=== PATIENT | female | born 1985 | race Two or more races ===

== ENCOUNTER 2016-12-29 08:44 | Emergency (ER) | payer OTHER ==
[2016-12-29 08:51] VITALS: BP 147/84; PULSE 70; TEMP 98.6; BMI 33.3
--- NOTE | 2016-12-29 09:46 | PDOC ---
History of Present Illness - General Chief Complaint: Cold Symptoms Stated Complaint: COUGH, COLD Time Seen by Provider: 12/29/16 09:12 History Source: Patient Exam Limitations: No Limitations - History of Present Illness Initial Comments: 12/29/16 09:43 daughter helping with translation; CC sore throat x 3 days with fever; no cough Timing/Duration: reports: changing over time Severity: reports: mild Possible Cause: No: chronic episodes Modifying Factors: worse with: activity Associated Symptoms: reports: fever/chills, sore throat. denies: denies symptoms, nasal congestion, nasal drainage, wheezing Past History - Past Medical History Allergies/Adverse Reactions: Allergies Allergy/AdvReac Type Severity Reaction Status Date / Time No Known Allergies Allergy Verified 12/29/16 08:51 Home Medications: Ambulatory Orders NK [No Known Home Medication] 12/29/16 HTN: Yes Other medical history: VERTIGO - Psycho/Social/Smoking Cessation Hx Anxiety: No Suicidal Ideation: No Smoking History: Never smoked Hx Alcohol Use: No Drug/Substance Use Hx: No Substance Use Type: None Review of Systems - Review of Systems Constitutional: Yes: Fever, Malaise. No: Chills HEENTM: Yes: Throat Pain, Throat Swelling Respiratory: No: Symptoms reported, Cough Cardiac (ROS): No: Symptoms Reported ABD/GI: No: Symptoms Reported *Physical Exam - Vital Signs Last Vital Signs Temp Pulse Resp BP Pulse Ox 98.6 F 70 20 147/84 98 12/29/16 08:48 12/29/16 08:48 12/29/16 08:48 12/29/16 08:48 12/29/16 08:48 - Physical Exam General Appearance: Yes: Appropriately Dressed. No: Apparent Distress HEENT: positive: Pharyngeal Erythema, Tonsillar Exudate, Tonsillar Erythema. negative: TMs Normal, TM Bulging, TM Dull, TM Erythema Neck: positive: Lymphadenopathy (R), Lymphadenopathy (L). negative: Tender Respiratory/Chest: positive: Lungs Clear. negative: Chest Tender, Respiratory Distress, Accessory Muscle Use Cardiovascular: positive: Regular Rhythm, Regular Rate. negative: Murmur Medical Decision Making - Medical Decision Making 12/29/16 09:45 will treat with pen Vk x 10 days *DC/Admit/Observation/Transfer Diagnosis at time of Disposition: Acute bacterial pharyngitis - Discharge Dispostion Disposition: HOME Condition at time of disposition: Stable Admit: No - Patient Instructions Additional Instructions: gargle; motrin for pain ; see local MD friday if no better
== END 2016-12-29 09:53 | disposition home or self-care (01) ==
LOC: JERFT 08:44
DX: J02.9 Acute pharyngitis, unspecified (principal); B96.89 Other specified bacterial agents as the cause of diseases classified elsewhere; I10 Essential (primary) hypertension; R42 Dizziness and giddiness
CPT/HCPCS: 99281-25

== ENCOUNTER 2019-06-08 23:16 | Emergency (ER) | payer OTHER ==
[2019-06-08 23:38] VITALS: BP 167/104; PULSE 94; TEMP 99; BMI 34.7
--- NOTE | 2019-06-09 01:20 | PDOC ---
History of Present Illness - General Chief Complaint: Vaginal Sxs Stated Complaint: ABD PAIN Time Seen by Provider: 06/09/19 01:19 History Source: Patient Exam Limitations: Language Barrier (Pink Rebel Shoes used for this interaction) - History of Present Illness Initial Comments: 06/09/19 01:44 34 year old c/o vaginal itching and burning with odor for 2 days, denies urinary symptoms, NVD, abdominal pain. patient is noted to have high blood pressure reading reports taking her evening dose of medication. denies headache , dizziness, weakness or chest pain/ patient reports that she was wearing pantyliner unsure if symptoms are related to irritation. reports yellow vaginal discharge. LMP: 05/10/2019 Has IUD denies recent antibiotics, denies STI exposure PMHX: hypertension currently on amlodipine, atenolol, benazepril. 06/09/19 01:54 Past History - Past Medical History Allergies/Adverse Reactions: Allergies Allergy/AdvReac Type Severity Reaction Status Date / Time No Known Allergies Allergy Verified 12/29/16 08:51 Home Medications: Ambulatory Orders Penicillin V Potassium [Pen Vee K -] 500 mg PO TID #30 tablet 12/29/16 Miconazole Nitrate [Miconazole 7] 45 gm VG DAILY #7 cream.appl 06/09/19 HTN: Yes - Suicide/Smoking/Psychosocial Hx Smoking History: Unknown if ever smoked Information on smoking cessation initiated: No Hx Alcohol Use: No Drug/Substance Use Hx: No Substance Use Type: None Review of Systems - Review of Systems Able to Perform ROS?: Yes Is the patient limited Niuean proficient: No Constitutional: No: Symptoms Reported, See HPI, Chills, Diaphoresis, Fever, Loss of Appetite, Malaise, Night Sweats, Weakness, Weight Stable, Unintentional Wgt. Loss, Unexplained wgt Loss, Other ABD/GI: Yes: Other (vaginal itching/ burning). No: Symptoms Reported, See HPI, Abdominal Distended, Abd. Pain w/ defecation, Blood Streaked Bowels, Constipated , Diarrhea, Difficulty Swallowing, Nausea, Poor Appetite, Poor Fluid Intake, Rectal Bleeding, Vomiting, Indigestion, Abdominal cramping, Tarry Stools *Physical Exam - Vital Signs Last Vital Signs Temp Pulse Resp BP Pulse Ox 99 F 94 H 20 167/104 H 98 06/08/19 23:33 06/08/19 23:33 06/08/19 23:33 06/08/19 23:33 06/08/19 23:33 - Physical Exam General Appearance: Yes: Appropriately Dressed Female Pelvic Exam: positive: normal external exam, other (+ erythema to labia majora and labia minora, minimal dicharge noted.). negative: normal adnexa Extremity: positive: Normal Capillary Refill, Normal Inspection, Normal Range of Motion Progress Note - Progress Note Progress Note: vaginitis P; UA UCX urine GC Medical Decision Making - Medical Decision Making 06/09/19 02:10 UA : + 2 leuks no urinary symptoms. will defer treatment. urien culture pending *DC/Admit/Observation/Transfer Diagnosis at time of Disposition: Vaginitis Qualifiers: Chronicity: acute Qualified Code(s): N76.0 - Acute vaginitis - Discharge Dispostion Disposition: HOME - Prescriptions Prescriptions: Miconazole Nitrate [Miconazole 7] 45 gm VG DAILY #7 cream.appl - Referrals Referrals: Jer Andre MD [Primary Care Provider] - - Patient Instructions Printed Discharge Instructions: DI for Vaginal Yeast Infection Additional Instructions: apply the ointment to your vaginal area. we will call you if your results are positive. 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 - Post Discharge Activity Forms/Work/School Notes: Back to Work
--- NOTE | 2019-06-09 01:26 | PDOC ---
*Physical Exam - Vital Signs Last Vital Signs Temp Pulse Resp BP Pulse Ox 99 F 94 H 20 167/104 H 98 06/08/19 23:33 06/08/19 23:33 06/08/19 23:33 06/08/19 23:33 06/08/19 23:33 Medical Decision Making - Medical Decision Making 06/09/19 01:25 Patient seen by the advanced practice provider under my direct supervision. Ancillary testing reviewed as necessary. I agree with plan as outlined by the advanced practice provider. *DC/Admit/Observation/Transfer Diagnosis at time of Disposition: Vaginitis Qualifiers: Chronicity: acute Qualified Code(s): N76.0 - Acute vaginitis - Discharge Dispostion Disposition: HOME - Prescriptions Prescriptions: Miconazole Nitrate [Miconazole 7] 45 gm VG DAILY #7 cream.appl - Referrals Referrals: Jer Andre MD [Primary Care Provider] - - Patient Instructions Printed Discharge Instructions: DI for Vaginal Yeast Infection Additional Instructions: apply the ointment to your vaginal area. we will call you if your results are positive. 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 - Post Discharge Activity Forms/Work/School Notes: Back to Work
[2019-06-09] MEDS ORDERED: FLUCONAZOLE 50 MG TABLET PO ONE (01:56)
[2019-06-09 01:57] LABS: EPI CELLS 3.5 /HPF (0-5/HPF); HYALINE CASTS 28 /lpf (0-8); URINE APPEARANCE CLOUDY; URINE BACTERIA 38.3 /hpf (NEGATIVE); URINE BILIRUBIN NEGATIVE (NEGATIVE); URINE COLOR YELLOW; URINE GLUCOSE (UA) NEGATIVE (NEGATIVE); URINE KETONE NEGATIVE (NEGATIVE); URINE LEUK ESTERASE 2+ (NEGATIVE); URINE NITRITE NEGATIVE (NEGATIVE); URINE PROTEIN NEGATIVE (NEGATIVE); URINE RBC 22 /hpf (0-4); URINE UROBILINOGEN 0.2 mg/dL (0.2-1.0); URINE WBC 86 /hpf (0-5)
[2019-06-09] MEDS ORDERED: FLUCONAZOLE 100 MG TABLET (UD) ONE (02:19)
== END 2019-06-09 02:25 | disposition home or self-care (01) ==
LOC: JER 23:16
DX: N76.0 Acute vaginitis (principal)
CPT/HCPCS: 36415; 81003; 84703; 87077; 87086; 87491; 87591; 99281-25

== ENCOUNTER 2019-10-04 10:57 | Inpatient (IN) | payer OTHER ==
[2019-09-30 14:42] VITALS: BMI 36.0
[~2019-10-04 10:57] MED LIST: BUPIVACAINE HCL/PF 0.25% (2.5MG/ML) 10 ML VIAL IJ ONE
[2019-10-04] MEDS ORDERED: BUPIVACAINE HCL/PF 0.5% (5 MG/ML) 30 ML VIAL IJ ONE (13:56)
[2019-10-04] MEDS ORDERED: MIDAZOLAM HCL 2 MG/2 ML SINGLE DOSE VIAL ONE (13:56)
[2019-10-04] MEDS ORDERED: SODIUM CHLORIDE 0.9% P/F 10 ML VIAL IJ ONE ×2 (14:33→15:29)
[2019-10-04] MEDS ORDERED: ONDANSETRON 4 MG/2 ML VIAL IVPUSH PRN (14:59)
[2019-10-04] MEDS ORDERED: LACTATED RINGERS SOLUTION 1,000 ML IV SCH (15:00)
[2019-10-04] MEDS ORDERED: PROPOFOL 20 ML ONE (15:26)
[2019-10-04] MEDS ORDERED: ROCURONIUM BROMIDE 50 MG/5 ML SYRINGE ONE (15:26)
[2019-10-04] MEDS ORDERED: SUCCINYLCHOLINE CHLORIDE 200 MG/10 ML SYRINGE ONE (15:26)
--- NOTE | 2019-10-04 15:27 | HP ---
Admitting History and Physical - Admission Chief Complaint: Morbid obesity History Source: Patient Limitations to Obtaining History: No Limitations - Past Medical History Cardiovascular: Yes: HTN Pulmonary: Yes: Asthma ...LMP: 09/27/19 - Past Surgical History Past Surgical History: Yes: - Smoking History Smoking history: Never smoked Have you smoked in the past 12 months: No - Alcohol/Substance Use Hx Alcohol Use: No - Social History ADL: Independent Home Medications - Allergies Allergies/Adverse Reactions: Allergies Allergy/AdvReac Type Severity Reaction Status Date / Time No Known Allergies Allergy Verified 10/04/19 12:02 - Home Medications Home Medications: Ambulatory Orders Amlodipine Besylate 10 mg PO DAILY 09/30/19 Atenolol [Tenormin -] 50 mg PO DAILY 09/30/19 Enalapril Maleate 10 mg PO DAILY 09/30/19 Family Medical History Family History: Denies Review of Systems - Review of Systems Constitutional: denies: Chills, Fever Neck: reports: No Symptoms Cardiovascular: reports: No Symptoms Respiratory: reports: No Symptoms Gastrointestinal: reports: No Symptoms Neurological: reports: No Symptoms Pain Intensity: 0 Physical Examination Vital Signs: Vital Signs Temperature 98.2 F 10/04/19 11:15 Pulse Rate 61 10/04/19 11:15 Respiratory Rate 18 10/04/19 11:15 Blood Pressure 141/72 10/04/19 11:15 O2 Sat by Pulse Oximetry (%) 99 10/04/19 11:18 Constitutional: Yes: Calm Neck: Yes: WNL Cardiovascular: Yes: WNL Respiratory: Yes: WNL Gastrointestinal: Yes: Soft, Abdomen, Obese Neurological: Yes: Alert, Oriented Problem List - Problems (1) Morbid obesity due to excess calories Code(s): E66.01 - MORBID (SEVERE) OBESITY DUE TO EXCESS CALORIES Assessment/Plan Laparoscopic possible open vertical sleeve gastrectomy possible liver biopsy, upper endoscopy
[2019-10-04] MEDS ORDERED: ceFAZolin SODIUM 1 GM VIAL ONE (15:29)
[2019-10-04] MEDS ORDERED: KETOROLAC TROMETHAMINE 30 MG/1 ML VIAL ONE (15:29)
[2019-10-04] MEDS ORDERED: DEXAMETHASONE SOD PHOSPHATE 4 MG/1 ML VIAL ONE (15:29)
[2019-10-04] MEDS ORDERED: LIDOCAINE HCL/PF 2% SDV 5ML VIAL ONE (15:29)
[2019-10-04] MEDS ORDERED: ONDANSETRON 4 MG/2 ML VIAL ONE ×2 (15:29→17:09)
[2019-10-04] MEDS ORDERED: BUPIVACAINE HCL 0.25% 125 MG/50 ML VIAL ONE (15:44)
[2019-10-04] MEDS ORDERED: GLYCOPYRROLATE 0.2 MG/1 ML VIAL ONE (16:55)
[2019-10-04] MEDS ORDERED: BUPIVACAINE HCL/PF 0.25% (2.5MG/ML) 10 ML VIAL IJ ONE (16:57)
--- NOTE | 2019-10-04 17:02 | OPR ---
Operative Note Operative Date: 10/04/19 Pre-Operative Diagnosis: Morbid obesity Operation: 1. Diagnostic laparoscopy. 2. Laparoscopic vertical sleeve gastrectomy. 3. Laparoscopic wedge liver biopsy. 4. Laparoscopic oversewing of gastric staple line Post-Operative Diagnosis: Same as Pre-op (as well as hepatomegaly and oozing from gastric staple line) Surgeon: Kane Agosto Workday Manager: Zay Arrieta Anesthesia: General Specimens Removed: Greater curvature of stomach. Liver biopsy. Estimated Blood Loss (mls): 30 Drains & Tubes with Location: 36 Fr Bougie Operative Report Dictated: Yes
[2019-10-04] MEDS ORDERED: FAMOTIDINE 20 MG/50 ML IVPB 20 MG/50 ML MG IVPB ONE (17:09)
[2019-10-04] MEDS ORDERED: ACETAMINOPHEN INJECTION 100 ML IVPB ONE (17:09)
[2019-10-04] MEDS ORDERED: METOCLOPRAMIDE HCL INJECTION 10 MG/2 ML VIAL ONE (17:09)
[2019-10-04] MEDS ORDERED: SODIUM CHLORIDE 1,000 ML IV SCH (17:15)
[2019-10-04] MEDS: METOCLOPRAMIDE HCL INJECTION 10 MG/2 ML VIAL IVPUSH SCH ×2 (17:30→23:12)
[2019-10-04] MEDS: ACETAMINOPHEN 1000 MG/100 ML VIAL (NON FORMULARY) IVPB SCH ×2 (17:30→23:12)
[2019-10-04] MEDS ORDERED: FAMOTIDINE 20 MG PREMIXED IVPB IVPB ONE (17:30)
[2019-10-04 18:04] LABS: HEMOGLOBIN 11.6 GM/dl (10.7-15.3); MCH 27.8 pg (25.7-33.7); MCHC 33.1 g/dl (32.0-36.0); MEAN CELL VOLUME 83.9 fl (80-96); MEAN PLT VOLUME 9.4 fl (7.5-11.1); PLATELET COUNT 250 K/MM3 (134-434); RBC 4.17 M/mm3 (3.60-5.2); RDW 14.4 % (11.6-15.6); WHITE BLOOD COUNT 10.5 K/mm3 (4.0-10.8)
[2019-10-04 18:21] LABS: ALBUMIN 3.6 g/dl (3.4-5.0); BILIRUBIN,TOTAL 0.6 mg/dl (0.2-1); CALCIUM 8.5 mg/dl (8.5-10); CREATININE 0.9 mg/dl (0.55-1.3); POTASSIUM 4.1 mmol/L (3.5-5.1); TOT PROT 6.8 g/dl (6.4-8.2)
--- NOTE | 2019-10-04 21:24 | SPEC ---
DATE OF OPERATION: 10/04/2019 SURGEON: Derrek Agosto MD COLLEGE SERVICE OFFICER: RANDI Rodriguez PLACE OF SERVICE: [facility], [address] [place] [address] PREOPERATIVE DIAGNOSIS: Morbid obesity. POSTOPERATIVE DIAGNOSIS: Morbid obesity and hepatomegaly and oozing from gastric staple line. PROCEDURE: 1. Diagnostic laparoscopy. 2. Laparoscopic vertical sleeve gastrectomy. 3. Laparoscopic wedge liver biopsy. 4. Laparoscopic oversewing of gastric staple line for oozing. SPECIMEN: 1. Greater curve of the stomach. 2. Liver biopsy. ESTIMATED BLOOD LOSS: 30 mL. DRAINS: None. ANESTHESIA: GET. BOUGIE: Size 36-Frisian. REASON FOR PROCEDURE: This is a 34-year-old female who presented to the office for weight loss options. After discussing different options, decided to proceed with a laparoscopic, possible open vertical sleeve gastrectomy with possible upper endoscopy. RISKS AND BENEFITS: After describing the different options for weight loss management, the patient decided to proceed with a laparoscopic, possible open vertical sleeve gastrectomy. The patient was seen by the respective subspecialties and cleared for surgery. The risks and benefits of the procedure were explained. These included bleeding, infection, hernia, CT, DVT, PE, injury to surrounding structures including the liver, colon, bowel, spleen, esophagus, vessel injury, nerve injury, weight regain, gastric leak, staple line leak, sleeve leak, obstruction, vitamin deficiency, hair loss and as some of the possible complications. The patient understood and signed informed consent. DESCRIPTION OF PROCEDURE: The patient was placed supine on the operating room table. The patient underwent general endotracheal intubation. The arms were brought out at 90 degrees and secured. A footboard was placed and the legs were secured laterally with padding. The abdomen was prepped and draped in the usual sterile fashion. A timeout was performed. An incision was made in the left upper quadrant and a Veress needle inserted. Pneumoperitoneum was established. Subsequently, the Veress needle was removed and a 5-mm trocar was placed under direct visualization with the laparoscope. The laparoscopic camera was then inserted and inspection of the abdominal cavity was performed. An incision was then made in the supraumbilical area and a 15-mm trocar was placed under direct visualization. A 5-mm trocar was then placed in the right upper quadrant and a 5-mm trocar was placed below the left subcostal margin. A stab wound was made in the subxiphoid area and a Alley clamp inserted and removed to dilate the tract. A Karson liver retractor was inserted. The post was secured at the bedside by the nursing staff. The patient was placed in steep reverse Trendelenburg position and the Karson liver retractor was used to secure the liver towards the anterior abdominal wall. The pylorus was identified and 6 cm proximal to it, the lesser sac was entered using the LigaSure device. All lateral attachments to the greater curvature of the stomach, including the short gastric vessels, were ligated using the LigaSure device toward the gastrosplenic and gastrophrenic ligaments. Once this was done in its entirety, it was confirmed that all tubes within the nasal or oropharyngeal cavity, including a temperature probe were removed by Anesthesia. The bougie was then inserted by Anesthesia. Transection of the stomach was then begun staying adjacent to the bougie but away from the angularis. Transection of the stomach was performed near the portion of the stomach where the lesser sac was entered. Two laparoscopic Endo-DYAN black vivian were used at this location. Laparoscopic Endo DYAN purple staple loads were then used for the remainder of the transection until the greater curvature of the stomach was fully transected. This was done staying close to the bougie. Care was taken to stay away from the angle of His cephalad. The staple line was then inspected. Hemostasis was identified. A leak test was then performed. It was clamped distally to the staple line. Irrigation solution was placed in the left upper quadrant and air was insufflated by Anesthesia into the sleeve. No leaks were identified. No obstruction was identified. This was done through the entirety of the staple line. The stomach was suctioned and the bougie removed fully intact under direct visualization. At this point, the irrigation solution was suctioned and again, hemostasis was noted. A wedge liver biopsy was then performed. The left lobe of the liver was identified. A portion of the edge of the left lobe of the liver was grasped. Using electrocautery, a wedge of the left liver was excised. The specimen was removed and sent off the field. Hemostasis of the wedge liver biopsy site was attained and noted using electrocautery. The 15-mm supraumbilical trocar was then removed and the greater curvature specimen removed from the site using a sponge stick hernandez. A Rene-Adrienne device was then used to close the fascia with a 0 Vicryl suture at the site. Again, hemostasis was noted. The Karson liver retractor was then removed under direct visualization. Pneumoperitoneum was desufflated. Hemostasis was noted at all incision sites and Marcaine was injected at all incision sites. A 3-0 Vicryl suture was used to close the deep subcutaneous tissue at the 15-mm incision site. All incision sites were closed using 4-0 Biosyn. Sterile dressings were applied. The patient tolerated the procedure well and was transferred to the recovery room in stable condition. In addition, because of oozing at the gastric staple line, EndoAssist device with a suture was used to oversew the staple line. Hemostasis was noted. DERREK AGOSTO M.D. [facility]/[id number]
[2019-10-04] MEDS: ENOXAPARIN NA (PORCINE) 40 MG/0.4 ML DISP.SYRIN SQ SCH (21:27)
[2019-10-04] MEDS: ONDANSETRON 4 MG/2 ML VIAL IVPUSH SCH (21:27)
[2019-10-04] MEDS: FAMOTIDINE 20 MG/50 ML IVPB 20 MG/50 ML MG IVPB SCH (21:28)
--- NOTE | 2019-10-04 23:02 | OP ---
DATE OF OPERATION: 10/04/2019 SURGEON: Kane Agosto MD. ELECTRIC FREIGHT CAR OPERATOR: RANDI Rodriguez. PREOPERATIVE DIAGNOSIS: Morbid obesity. POSTOPERATIVE DIAGNOSIS: Morbid obesity, hepatomegaly, and oozing from gastric staple line. PROCEDURES: 1. Diagnostic laparoscopy. 2. Laparoscopic vertical sleeve gastrectomy. 3. Laparoscopic wedge liver biopsy. 4. Laparoscopic oversewing of gastric staple line for oozing. SPECIMENS: 1. Greater curvature of the stomach. 2. Liver biopsy. ESTIMATED BLOOD LOSS: 30 mL. DRAINS: None. ANESTHESIA: . INDICATION FOR PROCEDURE: This is a 34-year-old female who presents for options, she decided to proceed with a laparoscopic, possible open vertical sleeve gastrectomy, possible liver biopsy, upper endoscopy. PLACE OF SURGERY: [place] [id number] SURGEON: Kane Agosto MD RISKS AND BENEFITS: After describing the different options for weight loss management, the patient decided to proceed with a laparoscopic, possible open vertical sleeve gastrectomy. The patient was seen by the respective subspecialties and cleared for surgery. The risks and benefits of the procedure were explained. These included bleeding, infection, hernia, FL, DVT, PE, injury to surrounding structures including the liver, colon, bowel, spleen, esophagus, vessel injury, nerve injury, weight regain, gastric leak, staple line leak, sleeve leak, obstruction, vitamin deficiency, hair loss and as some of the possible complications. The patient understood and signed informed consent. DESCRIPTION OF PROCEDURE: The patient was placed supine on the operating room table. The patient underwent general endotracheal intubation. The arms were brought out at 90 degrees and secured. A footboard was placed and the legs were secured laterally with padding. The abdomen was prepped and draped in the usual sterile fashion. A timeout was performed. An incision was made in the left upper quadrant and a Veress needle inserted. Pneumoperitoneum was established. Subsequently, the Veress needle was removed and a 5-mm trocar was placed under direct visualization with the laparoscope. The laparoscopic camera was then inserted and inspection of the abdominal cavity was performed. An incision was then made in the supraumbilical area and a 15-mm trocar was placed under direct visualization. A 5-mm trocar was then placed in the right upper quadrant and a 5-mm trocar was placed below the left subcostal margin. A stab wound was made in the subxiphoid area and a Alley clamp inserted and removed to dilate the tract. A Karson liver retractor was inserted. The post was secured at the bedside by the nursing staff. The patient was placed in steep reverse Trendelenburg position and the Karson liver retractor was used to secure the liver towards the anterior abdominal wall. The pylorus was identified and 6 cm proximal to it, the lesser sac was entered using the LigaSure device. All lateral attachments to the greater curvature of the stomach, including the short gastric vessels, were ligated using the LigaSure device toward the gastrosplenic and gastrophrenic ligaments. Once this was done in its entirety, it was confirmed that all tubes within the nasal or oropharyngeal cavity, including a temperature probe were removed by Anesthesia. The bougie was then inserted by Anesthesia. Transection of the stomach was then begun staying adjacent to the bougie but away from the angularis. Transection of the stomach was performed near the portion of the stomach where the lesser sac was entered. Two laparoscopic Endo-DYAN black vivian were used at this location. Laparoscopic Endo DYAN purple staple loads were then used for the remainder of the transection until the greater curvature of the stomach was fully transected. This was done staying close to the bougie. Care was taken to stay away from the angle of His cephalad. The staple line was then inspected. Hemostasis was identified. A leak test was then performed. It was clamped distally to the staple line. Irrigation solution was placed in the left upper quadrant and air was insufflated by Anesthesia into the sleeve. No leaks were identified. No obstruction was identified. This was done through the entirety of the staple line. The stomach was suctioned and the bougie removed fully intact under direct visualization. At this point, the irrigation solution was suctioned and again, hemostasis was noted. A wedge liver biopsy was then performed. The left lobe of the liver was identified. A portion of the edge of the left lobe of the liver was grasped. Using electrocautery, a wedge of the left liver was excised. The specimen was removed and sent off the field. Hemostasis of the wedge liver biopsy site was attained and noted using electrocautery. The 15-mm supraumbilical trocar was then removed and the greater curvature specimen removed from the site using a sponge stick hernandez. A Rene-Adrienne device was then used to close the fascia with a 0 Vicryl suture at the site. Again, hemostasis was noted. The Karson liver retractor was then removed under direct visualization. Pneumoperitoneum was desufflated. Hemostasis was noted at all incision sites and Marcaine was injected at all incision sites. A 3-0 Vicryl suture was used to close the deep subcutaneous tissue at the 15-mm incision site. All incision sites were closed using 4-0 Biosyn. Sterile dressings were applied. The patient tolerated the procedure well and was transferred to the recovery room in stable condition. ADDENDUM: In addition, because of oozing at the staple line, the staple line was oversewn with an Endo Stitch suture with an Endo Stitch device with a Surgitek suture. Hemostasis was noted. Darnell [id number]
[2019-10-04] MEDS: HYDROmorphone HCL CARPU-JECT 1 MG/1 ML DISP.SYRIN IVPB PRN (23:12)
[2019-10-05] MEDS: ONDANSETRON 4 MG/2 ML VIAL IVPUSH SCH ×5 (00:19→12:35)
[2019-10-05] MEDS: HYDROmorphone HCL CARPU-JECT 1 MG/1 ML DISP.SYRIN IVPB PRN (04:13)
[2019-10-05] MEDS: METOCLOPRAMIDE HCL INJECTION 10 MG/2 ML VIAL IVPUSH SCH ×2 (06:20→11:00)
[2019-10-05] MEDS: ACETAMINOPHEN 1000 MG/100 ML VIAL (NON FORMULARY) IVPB SCH ×2 (06:20→11:01)
[2019-10-05 08:04] LABS: HEMATOCRIT 33.7 % (32.4-45.2); MCH 27.7 pg (25.7-33.7); MCHC 32.7 g/dl (32.0-36.0); MEAN CELL VOLUME 84.6 fl (80-96); MEAN PLT VOLUME 9.2 fl (7.5-11.1); PLATELET COUNT 275 K/MM3 (134-434); RBC 3.98 M/mm3 (3.60-5.2); RDW 14.9 % (11.6-15.6); WHITE BLOOD COUNT 10.9 K/mm3 (4.0-10.8)
--- NOTE | 2019-10-05 08:25 | PN ---
Progress Note (short form) - Note Progress Note: POD#1 Pt without any complaints of SOB, CP. Slight nausea no emesis. OOB and ambulating and voiding on her own. Vital Signs Period Temp Pulse Resp BP Sys/[place] Pulse Ox Last 24 Hr 97.4 F-98.2 F 61-83 12-18 124-148/72-95 97-100 GEN: A&0x3, NAD CV; RRR Lungs: CTA b/l ABD: soft, non-distended, inc tenderness. Inc c/d/i LE: no calf tenderness or swelling b/l. SCD/TEDS in place CBC, BMP 10/05/19 07:25 Laboratory Tests 10/04/19 10/04/19 17:40 17:40 WBC 10.5 Hgb 11.6 Hct 35.0 Plt Count 250 Sodium 134 L Potassium 4.1 Chloride 103 Carbon Dioxide 24 Anion Gap 7 L BUN 10.0 Creatinine 0.9 A/p: 34 yo female s/p lap sleeve gastrectomy POD 1 Upper GI series this AM Pain control with Ofirmev 1g q6h, Dilaudid 1mg q3hrs prn DVT prophylaxis with Lovenox 40mg bid, b/l SCDS, b/l TEDS GI prophylaxis with Pepcid 20mg IV BID, Metoclopramide 10mg Iv q6hrs Zofran 4mg q4hrs prn n/v Remote tele/continuous pulse ox Monitor VS Monitor I&Os OOB ad yelitza Continue IVF Incentive spirometry D/w Dr. Aogsto <Sera Vee - Last Filed: 10/05/19 08:29> - Note Progress Note: POD 1 No acute events AVSS Labs WNL UGI: no leak/obstruction Clears Discharge home <Kane Agosto - Last Filed: 10/05/19 20:07> Problem List - Problems (1) Morbid obesity due to excess calories Code(s): E66.01 - MORBID (SEVERE) OBESITY DUE TO EXCESS CALORIES <Kane Agosto - Last Filed: 10/05/19 20:07>
[2019-10-05] MEDS: ENOXAPARIN NA (PORCINE) 40 MG/0.4 ML DISP.SYRIN SQ SCH (10:09)
[2019-10-05] MEDS: FAMOTIDINE 20 MG/50 ML IVPB 20 MG/50 ML MG IVPB SCH (10:09)
[2019-10-05 10:57] LABS: ALBUMIN 3.5 g/dl (3.4-5.0); BILIRUBIN,TOTAL 0.4 mg/dL (0.2-1); CALCIUM 8.2 mg/dL (8.5-10.1); CREATININE 0.8 mg/dL (0.55-1.3); POTASSIUM 4.2 mmol/L (3.5-5.1)
[2019-10-05] MEDS ORDERED: oxyCODONE HCL 5 MG TABLET PO PRN (13:37)
[2019-10-05] MEDS ORDERED: SODIUM CHLORIDE 1,000 ML IV SCH (13:45)
--- NOTE | 2019-10-05 13:54 | PN ---
Progress Note (short form) - Note Progress Note: ANESTHESIA POSTOP 34 YO FEMALE POD #1 S/P LAP GASTRIC SLEEVE Patient resting in bed. Pain adequately controlled. VSS, Afebrile Continue current care. Encouraged ambulation and IS.
[2019-10-05 14:28] VITALS: BP 143/91; PULSE 81; TEMP 68.2
--- NOTE | 2019-10-07 11:39 | PATH ---
Surgical Pathology Report Patient Name: JUICE RODRÍGUEZ Med. Rec. #: [id number] /Age/Gender: 1985 (Age: 34) / F Account: [id number] Location: [facility] MED-SURG Taken: 10/04/2019 Received: 10/04/2019 Reported: 10/07/2019 Physicians: Kane Agosto M.D. Specimen(s) Received A: GREATER CURVATURE STOMACH B: LIVER BIOPSY Clinical History Morbid obesity Final Diagnosis A. GREATER CURVATURE STOMACH, LAPAROSCOPIC GASTRIC SLEEVE EXCISION: PORTION OF STOMACH SHOWING MILD CHRONIC MUCOSAL INFLAMMATION. IMMUNOSTAIN IS NEGATIVE FOR H. PYLORI ORGANISMS. B. LIVER, BIOPSY: LIVER PARENCHYMA SHOWING MINIMAL STEATOSIS (< 5%). TRICHROME STAIN SHOWS NO APPRECIABLE INCREASE IN FIBROSIS. IRON STAIN SHOWS NO IRON DEPOSITS. Electronically Signed Yvette Aranda M.D. Gross Description A. Received in formalin, labeled "greater curvature of stomach," is a 64 gram, 17.0 x 2.8 x 2.6 cm. portion of stomach with a stapled margin of resection. The serosa is salcedo-powers with minimal attached fat. The mucosa is salcedo-pink with normal folds. No mucosal masses are identified. Polysomnography Technician sections are submitted in one cassette. B. Received in formalin labeled "liver biopsy," is a 2.2 x 1.0 x 0.3 cm salcedo, irregular portion of soft tissue, consistent with a portion of liver. The specimen is submitted in toto in one cassette. /10/05/2019 saudi10/05/2019
== END 2019-10-05 17:28 | disposition home or self-care (01) | DRG 403 ==
LOC: FM/S 10:57
PROVIDERS: ADMIT Surgery; ATTEND Surgery
PROC: 0DB64Z3 Excision of Stomach, Percutaneous Endoscopic Approach, Vertical (ICD-10-PCS; principal; 2019-10-04 16:05)
PROC: 0FB24ZX Excision of Left Lobe Liver, Percutaneous Endoscopic Approach, Diagnostic (ICD-10-PCS; 2019-10-04 16:05)
DX: E66.01 Morbid (severe) obesity due to excess calories (principal); Z68.35 Body mass index [BMI] 35.0-35.9, adult; R16.0 Hepatomegaly, not elsewhere classified; I10 Essential (primary) hypertension; J45.909 Unspecified asthma, uncomplicated
CPT/HCPCS: 36415; 74240-TC-FY; 80053; 84703; 85027; 87389; 94760; J0131

== ENCOUNTER 2022-03-15 17:18 | Emergency (ER) | payer OTHER ==
[2022-03-15 17:29] VITALS: BMI 27.4
[2022-03-15] MEDS ORDERED: ACETAMINOPHEN 1000 MG/100 ML BAG IVPB ONE (17:45)
[2022-03-15] MEDS ORDERED: SODIUM CHLORIDE 1,000 ML IV STA (17:45)
[2022-03-15] MEDS ORDERED: PYRIDOXINE HCL (B-6) 100 MG TABLET PO ONE (17:47)
[2022-03-15] MEDS ORDERED: ACETAMINOPHEN INJECTION 100 ML IVPB ONE (17:51)
[2022-03-15 18:03] LABS: HEMOGLOBIN 10.4 G/dL (10.7-15.3); MCH 26.9 pg (25.7-33.7); MCHC 34.7 g/dl (32.0-36.0); MEAN CELL VOLUME 77.6 fl (80-96); MEAN PLT VOLUME 8.7 fl (7.5-11.1); PLATELET COUNT 284.3 10^3/uL (134-434); RBC 3.87 10^6/uL (3.60-5.2); RDW 16.4 % (11.6-15.6); WHITE BLOOD COUNT 8.8 10^3/uL (4.0-10.8)
[2022-03-15 18:17] LABS: ALBUMIN 3.6 g/dl (3.4-5.0); BILIRUBIN,TOTAL 0.4 mg/dl (0.2-1); CREATININE 0.9 mg/dl (0.55-1.3); TOT PROT 6.5 g/dl (6.4-8.2)
[2022-03-15 18:19] LABS: PLATELET ESTIMATE ADEQUATE
[2022-03-15 19:50] VITALS: BP 152/93; PULSE 64; TEMP 99.1
[2022-03-15 20:44] LABS: EPITHELIAL CELLS FEW /hpf
== END 2022-03-15 20:10 | disposition home or self-care (01) ==
LOC: FER 17:18
PROC: 3E033GC Introduction of Other Therapeutic Substance into Peripheral Vein, Percutaneous Approach (ICD-10-PCS; principal; 2022-03-15)
DX: O21.0 Mild hyperemesis gravidarum (principal); Z3A.01 Less than 8 weeks gestation of pregnancy
CPT/HCPCS: 0241U-QW; 36415; 76817-TC; 80053; 81003; 81015; 84702; 85027; 87086; 99284-25